=== PATIENT | male | born 1995 | race Caucasian/White ===

== ENCOUNTER 2022-06-13 17:12 | Emergency (ER) | payer MEDICAID, SELFPAY ==
[2022-06-13 19:22] VITALS: BP 106/65; PULSE 83; RESP 16; TEMP 36.9; O2SAT 98; BMI 24.0
--- NOTE | 2022-06-13 22:25 | ED.GENADULT ---
HPI - General Adult General Chief complaint: General Medical Stated complaint: Sent from [facility], both legs twitching/ numb Time Seen by Provider: 06/13/22 22:14 Source: patient Mode of arrival: ambulatory Limitations: no limitations History of Present Illness HPI narrative: Patient is a 26-year-old male who presents emergency department for evaluation of right leg twitching in tingling. He states that this 1st began about 1.5 weeks ago. Denied any precipitating injury. Denied associated back pain with this. The sensation is felt particularly throughout the thigh the knee in the upper aspect of the lower leg. He states was only present at night. However, since his symptoms began last night they occurred all throughout today which is not typical. Therefore he decided to come to the emergency department. He does state that at times he feels some tingling to his right arm as well as his left leg but these are very infrequent. Denies any significant medical history, just reporting that he has a single kidney, was born this way. Denies any new medications, recent viral illnesses, insect bites or exposure. Denies alcohol or drug usage. Related Data Allergies Allergy/AdvReac Type Severity Reaction Status Date / Time pollen extracts [POLLEN] Allergy Mild SNEEZING Unverified 05/06/20 16:35 WATERY ITCHY EYES Review of Systems Review of Systems: Constitutional: No weight loss. No fever. No chills. No weakness. No fatigue. Skin: No rash. No itching. Cardiovascular: No chest pain. No chest pressure. No palpitations. No pedal edema. Respiratory: No shortness of breath. No cough. No sputum production. Gastrointestinal: No nausea. No vomiting. No diarrhea. No abdominal pain. Genitourinary: No burning micturition. No urinary frequency. No incontinence. Neurologic: No headache. No dizziness. No pre-syncope/ syncope. No unilateral weakness. No ataxia. No numbness. Positive tingling. No change in bowel or bladder control. Musculoskeletal: No muscle pain. No back pain. No joint pain. No stiffness. Hematologic: No bleeding. No bruising. Psychiatric:No depression. No anxiety. Endocrine: No polyuria. No polydipsia. Yes all other systems are reviewed and are negative [facility] Past Medical History Attestation statement: The following information was validated with the patient. Source: old records reviewed Social History Social History Advance Directives: No Advance Directives Information Provided: No Physical Exam ED Vital Signs: Vital Signs - 24 hr 06/13/22 19:22 Temperature 98.5 F Pulse Rate 83 Respiratory Rate 16 Blood Pressure 106/65 Pulse Oximetry 98 Oxygen Delivery Method Room Air BMI result Body Mass Index 24.0 Appearance: Alert.?Oriented to person, place and time. No acute distress.?Normal affect. Eyes: Pupils equal, round and reactive to light.? ENT: Pharynx normal.?? Neck: Normal inspection.? Neck supple.?? CVS: Heart sounds normal. Normal heart rate and rhythm.? Pulses normal.?? Respiratory: No respiratory distress.? Lung sounds clear to auscultation bilaterally?? Abdomen: Soft and non-tender. Normoactive bowel sounds. ?? Skin: Skin warm and dry.? Normal skin color.? Extremities: No lower extremity edema.? No calf ttp. Neuro: Moves all extremities spontaneously. Sensation intact bilaterally. 2+ patellar and achiles reflex. CN II-XII intact. No focal neuro deficits. Ambulates with normal steady gait. Course Course Course Narrative: Patient is a 26-year-old male with past medical history of solitary kidney presents to the emergency department for evaluation of paresthesia to the right lower extremity. He is overall well-appearing. Has no focal neurological deficits. Normal reflexes and muscle tone to extremity. No recent illnesses. He is ambulatory with a steady gait. Patient is currently prescribed sertraline, tramadol, aripiprazole, it is possible that symptoms may be adverse effect from medication. No erythema, warmth, swelling risk factors prior history to suggest DVT. Wells negative. Plan to obtain CBC, CMP, magnesium, CPK, TSH. Patient reporting discomfort at this time will trial acetaminophen. Reevaluation(s) Reevaluation #1: Serum labs are unremarkable, no identifiable cause for patient's symptoms. It is possible that this may be a side effect of the aripiprazole, did discuss this with patient. Advised that he may trial Benadryl 50 mg in the evening before bedtime. Advised outpatient follow-up with his primary care provider. Reviewed worrisome signs and symptoms to return back to emergency department for. All questions were answered. Patient discharged home in stable condition Time: 00:19 Medical Decision Making Medical Records Medical records reviewed: Yes I reviewed the patient's medical records. Lab Data Lab results reviewed: Yes I reviewed the patient's lab results. Result diagrams: 06/13/22 23:05 06/13/22 23:05 Labs: Lab Results 06/13/22 06/13/22 Range/Units 23:05 23:05 WBC 8.5 (4.8-10.8) X10*3/uL RBC 5.21 (4.60-5.80) X10*6/uL Hgb 15.8 (14.0-18.0) g/dl Hct 45.7 (42.0-52.0) % MCV 87.7 (80.0-98.0) fL MCH 30.3 (27.0-33.0) pg MCHC 34.6 (31.0-36.0) g/dl RDW 14.0 (11.0-16.0) % Plt Count 181 (160-400) X10*3/uL MPV 10.1 (9.4-12.4) fL Immature Gran % (Auto) 0.2 (0.0-0.4) % Neut % (Auto) 69.3 (45-73) % Lymph % (Auto) 22.1 (20-40) % [place] % (Auto) 6.8 (2-11) % Eos % (Auto) 1.2 (0-4) % Baso % (Auto) 0.4 (0-2) % Lymph # (Auto) 1.9 (1.2-4.9) X10*3/uL [place] # (Auto) 0.6 (0.1-1.2) X10*3/uL Eos # (Auto) 0.1 (0.0-0.4) X10*3/uL Baso # (Auto) 0.0 (0.0-0.2) X10*3/uL Abs Immat Gran (auto) 0.02 (0.00-0.03) X10*3/uL Absolute Neuts (auto) 5.9 (2.0-8.3) x10*3/uL Absolute Nucleated RBC 0.000 (0.0-0.012) X10*3/uL Nucleated RBC % (auto) 0.0 (0.0-0.2) /100WBC Sodium 140 (135-145) mmol/L Potassium 3.8 (3.3-5.1) mmol/L Chloride 105 (96-108) mmol/L Carbon Dioxide 24 (22-29) mmol/L Anion Gap 15 (12-20) BUN 13 (9-16) mg/dL Creatinine 0.77 (0.5-1.4) mg/dL Estim Creat Clear Calc 132.3 Estimated GFR > 60 Random Glucose 121 H (60-115) mg/dL Calcium 9.3 (8.4-10.2) mg/dL Magnesium 1.7 (1.6-2.6) mg/dL Total Bilirubin 0.4 (0.0-1.0) mg/dL AST 22 (5-37) U/L ALT 27 (0-40) U/L Alkaline Phosphatase 50 (39-117) U/L Total Creatine Kinase 148 (38-174) U/L Total Protein 7.2 (6.5-8.0) g/dL Albumin 4.3 (3.5-5.0) g/dL TSH 0.92 (0.32-4.0) uIU/mL Discharge Plan Discharge Clinical Impression: Paresthesia and pain of right extremity Patient Disposition: Home, Self-Care Instructions: Leg Cramps (ED), Paresthesia (ED) Additional Instructions: As we discussed, your blood work today was normal. You might consider using Benadryl 50 mg by mouth before bedtime to help with your symptoms. Please contact your primary care provider to arrange for a follow-up visit, as mentioned it is possible that the symptoms are due to 1 of your medications. Return to emergency department any new or worsening symptoms or concerns. Referrals: [facility] [Primary Care Provider] -
[2022-06-13 23:10] LABS: MANUAL DIFF FLAG NO
[2022-06-13 23:12] LABS: Basophils Percent Auto 0.4 % (0-2); Eosinophils Absolute Auto 0.1 X10*3/uL (0.0-0.4); Eosinophils Percent Auto 1.2 % (0-4); Hematocrit 45.7 % (42.0-52.0); Hemoglobin 15.8 g/dl (14.0-18.0); Imm Gran Abs Auto 0.02 X10*3/uL (0.00-0.03); Imm Gran Pct Auto 0.2 % (0.0-0.4); Lymphocytes Absolute Auto 1.9 X10*3/uL (1.2-4.9); Lymphocytes Percent Auto 22.1 % (20-40); Mean Corpuscular HGB Conc 34.6 g/dl (31.0-36.0); Mean Corpuscular Hemoglobin 30.3 pg (27.0-33.0); Mean Corpuscular Volume 87.7 fL (80.0-98.0); Mean Platelet Volume 10.1 fL (9.4-12.4); Monocytes Absolute Auto 0.6 X10*3/uL (0.1-1.2); Monocytes Percent Auto 6.8 % (2-11); Neutrophils Absolute Auto 5.9 x10*3/uL (2.0-8.3); Neutrophils Percent Auto 69.3 % (45-73); Platelet Count 181 X10*3/uL (160-400); Red Blood Count 5.21 X10*6/uL (4.60-5.80); White Blood Count 8.5 X10*3/uL (4.8-10.8)
[2022-06-13 23:33] LABS: Alanine Aminotransferase 27 U/L (0-40); Albumin Level 4.3 g/dL (3.5-5.0); Alkaline Phosphatase 50 U/L (39-117); Anion Gap 15 (12-20); Aspartate Amino Transferase 22 U/L (5-37); Bilirubin Total 0.4 mg/dL (0.0-1.0); Blood Urea Nitrogen 13 mg/dL (9-16); Calcium 9.3 mg/dL (8.4-10.2); Carbon Dioxide 24 mmol/L (22-29); Chloride 105 mmol/L (96-108); Creatinine Clr Calc Pharmacy 132.3; Estimated Glomerular Filt Rate > 60; Glucose Random 121 mg/dL (60-115); Magnesium 1.7 mg/dL (1.6-2.6); Potassium 3.8 mmol/L (3.3-5.1); Sodium 140 mmol/L (135-145); Total Protein 7.2 g/dL (6.5-8.0)
[2022-06-13] MEDS: Acetaminophen 325 MG TABLET 975 MG PO (23:50)
[2022-06-13] MEDS: hydrOXYzine HCL 25 MG TABLET PO (23:50)
[2022-06-13 23:53] LABS: TSH reflex Free T4 0.92 uIU/mL (0.32-4.0)
[2022-06-14] VITALS: PULSE 72; RESP 18; O2SAT 98
== END 2022-06-14 01:00 | disposition home or self-care (01) ==
PROVIDERS: Nurse Practitioner Family; Emergency Provider Emergency Medicine
DX: R20.0 Anesthesia of skin (principal); M79.604 Pain in right leg; Z79.899 Other long term (current) drug therapy
CPT/HCPCS: 36415; 80053; 82550; 83735; 84443; 85025; 99283; 99284

== ENCOUNTER 2022-07-04 13:41 | Emergency (ER) | payer MEDICAID, SELFPAY ==
--- NOTE | ~2022-07-04 | XR_ITS ---
EXAMINATION: XR LUMBOSACRAL SPINE CLINICAL INFORMATION: Fall and back pain. COMPARISON: None TECHNIQUE: Three views of the lumbosacral spine. FINDINGS: There is normal lumbar lordosis. Vertebral heights, alignment is normal. There is a lumbarization of S1 vertebra. The vertebral heights, alignment and disc heights are normal. Rudimentary ribs are seen at the L1 vertebra. No visible acute fracture, dislocation or lytic process seen. The SI joints are symmetrical. The soft tissues are normal. There is spina bifida S1 vertebra. XR/XR lumbar spine 2-3V IMPRESSION: 1. No acute fracture, dislocation or lytic process seen. There is a lumbarization of S1 vertebra. There is spina bifida S1 vertebra. No visible acute fracture or dislocation seen.
[2022-07-04 15:49] VITALS: BP 149/84; PULSE 100; RESP 20; TEMP 37.2; O2SAT 100; BMI 23.3
--- NOTE | 2022-07-04 15:54 | ED.BACK ---
HPI - Back Pain/Injury General Chief Complaint: Back Pain/Injury Stated Complaint: Back Pain S/P Fall 07/03/22 Time Seen by Provider: 07/04/22 17:57 Related Data Previous Rx's Medication Instructions Recorded acetaminophen 325 mg capsule 325 mg PO QID PRN fever or pain 7 07/04/22 days #28 caps prednisone 20 mg tablet 40 mg PO DAILY 5 days #10 tabs 07/04/22 Allergies Allergy/AdvReac Type Severity Reaction Status Date / Time pollen extracts [POLLEN] Allergy Mild SNEEZING Unverified 05/06/20 16:35 WATERY ITCHY EYES PMFSH Social History Social History Patient Tobacco Use Status: Former Tobacco user Substance Use Type: Painkillers Advance Directives: No Advance Directives Information Provided: No Physical Exam Vital Signs: Vital Signs: Last Vital Signs Temp 99.0 F 07/04/22 15:49 Pulse 100 07/04/22 15:49 Resp 20 07/04/22 15:49 BP 149/84 H 07/04/22 15:49 Pulse Ox 100 07/04/22 15:49 O2 Del Method 07/04/22 15:49 BMI result Body Mass Index 23.3 Course Reevaluation(s) Reevaluation #1: S/p fall last night landing on his lower back, no head injury no LOC, complaining of lower back pain and left flank pain, patient was born with 1 kidney, will check kidney function test, check UA for blood and x-ray of the lumbar spine Time: 15:55 Medications Administered Discontinued Medications Generic Name Dose Route Start Last Admin Trade Name Freq PRN Reason Stop Dose Admin Ketorolac Tromethamine 30 mg 07/04/22 18:32 07/04/22 19:24 Ketorolac Tromethamine 30 Mg/Ml Vial IM 07/04/22 18:33 30 mg ONCE ONE Administration MDM - Back Pain/Injury Lab Data Result diagrams: 07/04/22 16:37 07/04/22 16:37 Labs: Lab Results 07/04/22 07/04/22 07/04/22 Range/Units 16:37 16:37 18:53 WBC 7.4 (4.8-10.8) X10*3/uL RBC 5.57 (4.60-5.80) X10*6/uL Hgb 16.7 (14.0-18.0) g/dl Hct 49.8 (42.0-52.0) % MCV 89.4 (80.0-98.0) fL MCH 30.0 (27.0-33.0) pg MCHC 33.5 (31.0-36.0) g/dl RDW 13.7 (11.0-16.0) % Plt Count 200 (160-400) X10*3/uL MPV 10.0 (9.4-12.4) fL Immature Gran % (Auto) 0.1 (0.0-0.4) % Neut % (Auto) 71.1 (45-73) % Lymph % (Auto) 22.3 (20-40) % [place] % (Auto) 5.7 (2-11) % Eos % (Auto) 0.4 (0-4) % Baso % (Auto) 0.4 (0-2) % Lymph # (Auto) 1.7 (1.2-4.9) X10*3/uL [place] # (Auto) 0.4 (0.1-1.2) X10*3/uL Eos # (Auto) 0.0 (0.0-0.4) X10*3/uL Baso # (Auto) 0.0 (0.0-0.2) X10*3/uL Abs Immat Gran (auto) 0.01 (0.00-0.03) X10*3/uL Absolute Neuts (auto) 5.3 (2.0-8.3) x10*3/uL Absolute Nucleated RBC 0.000 (0.0-0.012) X10*3/uL Nucleated RBC % (auto) 0.0 (0.0-0.2) /100WBC Sodium 140 (135-145) mmol/L Potassium 4.5 (3.3-5.1) mmol/L Chloride 105 (96-108) mmol/L Carbon Dioxide 26 (22-29) mmol/L Anion Gap 14 (12-20) BUN 15 (9-16) mg/dL Creatinine 0.76 (0.5-1.4) mg/dL Estim Creat Clear Calc 134.0 Estimated GFR > 60 Random Glucose 93 (60-115) mg/dL Calcium 10.1 D (8.4-10.2) mg/dL Urine Color Yellow Urine Appearance Clear Urine pH 5.5 (5.0-9.0) Ur Specific [place] >= 1.030 H (1.005-1.025) Urine Protein Negative (Neg-Trace) mg/dL Urine Glucose (UA) Negative (Negative) mg/dL Urine Ketones Trace (Negative) mg/dL Urine Blood Negative (Negative) Urine Nitrite Negative (Negative) Ur Leukocyte Esterase Negative (Negative) Discharge Plan Discharge Clinical Impression: Fall, Back pain Patient Disposition: Home, Self-Care Instructions: Back Pain (ED) Additional Instructions: Labs and UA were normal. Xray negative for fractures. return to the ED immediately for any urinary/ bowel incontinence, abdominal pain, rectal bleeding, bloody urine, chest pain, shortness of breath, abdominal pain, headache, dizziness, neck stiffness, neck pain, fever, chills, or any other concerning symptoms. Please Follow up with PCP. Prescriptions: New prednisone 20 mg tablet 40 mg PO DAILY 5 Days Qty: 10 0RF acetaminophen 325 mg capsule 325 mg PO QID PRN (Reason: fever or pain) 7 Days Qty: 28 0RF Stand Alone Forms: Work/School Release Interventions: ED Discharge Assessment Last Done: 07/04/22 19:47 Discharge Date/Time: 07/04/22 19:48 Print Language: Turkmen
[2022-07-04 16:44] LABS: MANUAL DIFF FLAG NO
[2022-07-04 16:46] LABS: Basophils Percent Auto 0.4 % (0-2); Eosinophils Percent Auto 0.4 % (0-4); Hematocrit 49.8 % (42.0-52.0); Hemoglobin 16.7 g/dl (14.0-18.0); Imm Gran Abs Auto 0.01 X10*3/uL (0.00-0.03); Imm Gran Pct Auto 0.1 % (0.0-0.4); Lymphocytes Absolute Auto 1.7 X10*3/uL (1.2-4.9); Lymphocytes Percent Auto 22.3 % (20-40); Mean Corpuscular HGB Conc 33.5 g/dl (31.0-36.0); Mean Corpuscular Volume 89.4 fL (80.0-98.0); Monocytes Absolute Auto 0.4 X10*3/uL (0.1-1.2); Monocytes Percent Auto 5.7 % (2-11); Neutrophils Absolute Auto 5.3 x10*3/uL (2.0-8.3); Neutrophils Percent Auto 71.1 % (45-73); Platelet Count 200 X10*3/uL (160-400); Red Blood Count 5.57 X10*6/uL (4.60-5.80); Red Cell Distribution Width 13.7 % (11.0-16.0); White Blood Count 7.4 X10*3/uL (4.8-10.8)
[2022-07-04 17:14] LABS: Anion Gap 14 (12-20); Blood Urea Nitrogen 15 mg/dL (9-16); Calcium 10.1 mg/dL (8.4-10.2); Carbon Dioxide 26 mmol/L (22-29); Chloride 105 mmol/L (96-108); Estimated Glomerular Filt Rate > 60; Glucose Random 93 mg/dL (60-115); Potassium 4.5 mmol/L (3.3-5.1); Sodium 140 mmol/L (135-145)
--- NOTE | 2022-07-04 18:47 | ED_ITS ---
HPI - General Adult General Chief complaint: Back Pain/Injury Stated complaint: Back Pain S/P Fall 07/03/22 Time Seen by Provider: 07/04/22 17:57 Source: patient Mode of arrival: ambulatory Limitations: no limitations History of Present Illness HPI narrative: 26 yold male presents to the ED for back pain after falling unto his back yesterday. patient denies hiting head or loss of concsiosuness. Patient states no other complaints. patient states no chest pain, headache, dizziness, loss of consousness, hitting head, chest pain, shortness of breath, rectal bleeding, vomitting, blood or abdominal pain Related Data Previous Rx's Medication Instructions Recorded acetaminophen 325 mg capsule 325 mg PO QID PRN fever or pain 7 07/04/22 days #28 caps prednisone 20 mg tablet 40 mg PO DAILY 5 days #10 tabs 07/04/22 Allergies Allergy/AdvReac Type Severity Reaction Status Date / Time pollen extracts [POLLEN] Allergy Mild SNEEZING Unverified 05/06/20 16:35 WATERY ITCHY EYES Review of Systems Review of Systems: Back pain Yes all other systems are reviewed and are negative [facility] Social History Social History Patient Tobacco Use Status: Former Tobacco user Substance Use Type: Painkillers Advance Directives: No Advance Directives Information Provided: No Physical Exam ED Vital Signs: Vital Signs - 24 hr 07/04/22 15:49 Temperature 99.0 F Pulse Rate 100 Respiratory Rate 20 Blood Pressure 149/84 H Pulse Oximetry 100 Oxygen Delivery Method Room Air BMI result Body Mass Index 23.3 Const General: cooperative, healthy appearing, comfortable, no acute distress, well developed, alert, awake and Physically active Orientation/consciousness: patient oriented x3 HENMT Head: Yes normal to inspection, Yes No palpable skull fracture present, Yes normocephalic, Yes atraumatic and No abrasion Ears: hearing grossly normal bilaterally, external ears normal, TM's normal bilaterally, EAC's normal, mastoids normal and no periauricular adenopathy Eyes General: appearance normal, both eyes and all related structures Neck Neck: Yes normal visual inspection, Yes full ROM, Yes no lymphadenopathy, Yes no meningeal signs, Yes trachea midline, Yes supple, No anterior neck swelling and No tender Chest Chest palpation & inspection: normal inspection of the chest and normal palpation of entire chest wall Resp Effort & Inspection: normal respiratory effort and able to speak in complete sentences Auscultation: clear to auscultation bilaterally Cardio Jugular venous distension: no JVD Heart sounds: S1 normal heart sound present and S2 normal heart sound present GI Inspection: Yes normal to inspection and No abdominal wall ecchymosis Palpation (GI): Soft to palpation, not firm, nontender, no guarding and not rigid General: No CVA tenderness and Yes no CVA tenderness Back/Spine/Pelvis Back: no CVA tenderness, No CVA tenderness and back tenderness (lumbar) Skin General skin exam: no rashes or lesions noted and elasticity normal Neuro General: patient oriented x3, gait normal, tone normal, no meningeal signs and CN's II-XI intact bilaterally Cranial nerves: Yes CN's II-XII intact bilaterally Extrem General: Yes normal to inspection and Yes full ROM Psych Appearance: grossly normal, well kempt and not disheveled Course Course Course Narrative: Labs drawn and UA ordered. Xray ordered Reevaluation(s) Reevaluation #1: Xray negative for fractures. UA normal. patient discharged with tylenol and prednisone. Patient has only one kidney. Xray shows spina bifida Time: 19:28 Medications Administered Discontinued Medications Generic Name Dose Route Start Last Admin Trade Name Gadielq PRN Reason Stop Dose Admin Ketorolac Tromethamine 30 mg 07/04/22 18:32 07/04/22 19:24 Ketorolac Tromethamine 30 Mg/Ml Vial IM 07/04/22 18:33 30 mg ONCE ONE Administration Medical Decision Making [facility] Narrative Medical decision making narrative: Back pain. fall Lab Data Result diagrams: 07/04/22 16:37 07/04/22 16:37 Labs: Lab Results 07/04/22 07/04/22 07/04/22 Range/Units 16:37 16:37 18:53 WBC 7.4 (4.8-10.8) X10*3/uL RBC 5.57 (4.60-5.80) X10*6/uL Hgb 16.7 (14.0-18.0) g/dl Hct 49.8 (42.0-52.0) % MCV 89.4 (80.0-98.0) fL MCH 30.0 (27.0-33.0) pg MCHC 33.5 (31.0-36.0) g/dl RDW 13.7 (11.0-16.0) % Plt Count 200 (160-400) X10*3/uL MPV 10.0 (9.4-12.4) fL Immature Gran % (Auto) 0.1 (0.0-0.4) % Neut % (Auto) 71.1 (45-73) % Lymph % (Auto) 22.3 (20-40) % [place] % (Auto) 5.7 (2-11) % Eos % (Auto) 0.4 (0-4) % Baso % (Auto) 0.4 (0-2) % Lymph # (Auto) 1.7 (1.2-4.9) X10*3/uL [place] # (Auto) 0.4 (0.1-1.2) X10*3/uL Eos # (Auto) 0.0 (0.0-0.4) X10*3/uL Baso # (Auto) 0.0 (0.0-0.2) X10*3/uL Abs Immat Gran (auto) 0.01 (0.00-0.03) X10*3/uL Absolute Neuts (auto) 5.3 (2.0-8.3) x10*3/uL Absolute Nucleated RBC 0.000 (0.0-0.012) X10*3/uL Nucleated RBC % (auto) 0.0 (0.0-0.2) /100WBC Sodium 140 (135-145) mmol/L Potassium 4.5 (3.3-5.1) mmol/L Chloride 105 (96-108) mmol/L Carbon Dioxide 26 (22-29) mmol/L Anion Gap 14 (12-20) BUN 15 (9-16) mg/dL Creatinine 0.76 (0.5-1.4) mg/dL Estim Creat Clear Calc 134.0 Estimated GFR > 60 Random Glucose 93 (60-115) mg/dL Calcium 10.1 D (8.4-10.2) mg/dL Urine Color Yellow Urine Appearance Clear Urine pH 5.5 (5.0-9.0) Ur Specific [place] >= 1.030 H (1.005-1.025) Urine Protein Negative (Neg-Trace) mg/dL Urine Glucose (UA) Negative (Negative) mg/dL Urine Ketones Trace (Negative) mg/dL Urine Blood Negative (Negative) Urine Nitrite Negative (Negative) Ur Leukocyte Esterase Negative (Negative) Discharge Plan Discharge Clinical Impression: Fall, Back pain Patient Disposition: Home, Self-Care Instructions: Back Pain (ED) Additional Instructions: Labs and UA were normal. Xray negative for fractures. return to the ED immediately for any urinary/ bowel incontinence, abdominal pain, rectal bleeding, bloody urine, chest pain, shortness of breath, abdominal pain, headache, dizziness, neck stiffness, neck pain, fever, chills, or any other concerning symptoms. Please Follow up with PCP. Prescriptions: New prednisone 20 mg tablet 40 mg PO DAILY 5 Days Qty: 10 0RF acetaminophen 325 mg capsule 325 mg PO QID PRN (Reason: fever or pain) 7 Days Qty: 28 0RF Stand Alone Forms: Work/School Release Interventions: ED Discharge Assessment Last Done: 07/04/22 19:47 Discharge Date/Time: 07/04/22 19:48 Print Language: Persian
[2022-07-04 19:00] LABS: Appearance Urine Clear; Color Urine Yellow; Glucose Urine UA Negative (Negative); Leukocyte Esterase Urine Negative (Negative); Nitrite Urine Negative (Negative); PH 5.5 (5.0-9.0); Specific Gravity - Urine >= 1.030 (1.005-1.025); Urine Blood Negative (Negative); Urine Ketones Trace mg/dL (Negative); Urine Protein Negative (Neg-Trace)
[2022-07-04] MEDS: Ketorolac Tromethamine 30 MG/ML VIAL IM (19:24)
--- NOTE | 2022-07-04 19:25 | PC.NURSE ---
Pt given 15mg Toradol IM, pt sts that he only has one kidley, per KATALINA Darden give 0.5ml, td=15mg
== END 2022-07-04 19:48 | disposition home or self-care (01) ==
PROVIDERS: Emergency Medicine; Emergency Provider Internal Medicine; PCP General Practice
DX: M54.50 Low back pain, unspecified (principal); Z87.891 Personal history of nicotine dependence; Z79.899 Other long term (current) drug therapy
CPT/HCPCS: 36415; 72100; 80048; 81003; 85025; 96372; 99284; J1885